=== PATIENT | female | born 1995 | race Hispanic/Latino ===

== ENCOUNTER 2025-01-25 14:24 | Emergency (ER) | payer BC ==
[~2025-01-25] VITALS: Ht 170.2 cm; Wt 113.4 kg
[2025-01-25 14:29] VITALS: BP 127/82; PULSE 83; RESP 18; TEMP 98.3
--- NOTE | 2025-01-25 14:52 | EKG ---
[facility] Test Date: 2025-01-25 Test Time: 14:46:26 Pat Name: MERLY JUAREZ Department: ED Room: Gender: F Board Catcher: [id number] : 1995 Requested By: JOSE ADAMS Order Number: [id number] Reading MD: Sandeep Dalton Measurements Intervals [place] Rate: 73 P: 41 WI: 163 QRS: 73 QRSD: 99 T: 54 QT: 354 QTc: 390 Interpretive Statements Sinus rhythm No previous ECG available for comparison Electronically Signed On 01-25-2025 20:29:48 CDT by Sandeep Dalton Please click the below link to view image of tracing.
[2025-01-25 15:07] LABS: IMMATURE GRANULOCYTE ABSOLUTE 0.03 K/uL (0-1); NUCLEATED RED BLOOD CELLS 0.0 % (0.0-0.19); PLATELET COUNT (AUTO) 366 K/uL (130-400); RED BLOOD CELL COUNT(AUTO) 4.73 MIL/uL (4.00-5.50); RED CELL DISTRIBUTION WIDTH 13.5 % (11.0-15.5); WHITE BLOOD COUNT (AUTO) 8.3 K/uL (4.8-10.8)
[2025-01-25 15:14] LABS: CREATININE 0.8 mg/dL (0.5-1.0); GLOMERULAR FILTR. RATE CALC 102.0 mL/min (>90); GLUCOSE,RANDOM 96.0 mg/dL (70-105); SODIUM SERUM 138.0 mmol/L (136-145); UREA NITROGEN, BLOOD 15.0 mg/dL (7-18)
[2025-01-25 15:35] LABS: HCG,QUANTITATIVE 0.0 mIU/mL (0-5)
--- NOTE | 2025-01-25 16:01 | ERN ---
ED Note History of Present Illness Stated Complaint: CP Chief Complaint: Chest Pain Time Seen by MD: 14:30 Time Seen by Midlevel: 14:33 Dictation: 29-year-old female with no past medical history coming in with complaints of chest pain and back pain worsening when she takes a deep breath. Patient does not admit to taking multiple energy drinks a day. Denies having any shortness a breath, fever, cough or congestion. Allergies: Coded Allergies: No Known Drug Allergies (Unverified Allergy, Unknown, 01/25/25) Past Medical History Past Medical History: CVA, Other Additional Past Medical Hx: BRAIN TUMOR Surgical History: Review of System Dictation Constitutional: Negative for fever,chills, and weight loss Eyes: Negative for injury, pain,redness, and discharge ENT: Negative for injury,pain or swelling Cardiovascular: Complaining of chest pain Respiratory: Negative for shortness of breath, cough, and wheezing, Abdomen/GI: Negative for abdominal pain, nausea, vomiting, diarrhea, and consti pation Back: Negative for injury and pain : Negative for injury, bleeding and discharge MS/Extremity: Negative for injury and deformity Skin: Negative for rash, and discoloration Neuro: Negative for headache, weakness, numbness, tingling, and seizure Psych: Negative for suicide ideation, homicidal ideation, and hallucinations Review of Systems: was completed Initial Vital Sign VS Vital Signs Date Time Temp Pulse Resp B/P (MAP) Pulse Ox O2 Delivery O2 Flow Rate FiO2 01/25/25 14:29 98.2 83 18 127/82 97 Physical Exam Dictation General: awake, alert, NAD Head/Face: Normocephalic, atraumatic Eyes: PERRL, EOMI, vision at baseline ENT: oral cavity clear, TMs clear, no signs of infection Neck: Trachea midline, supple, no nuchal rigidity Cardiovascular: RRR, normal S1/S2, No MRGs, no JVD, reproducible chest pain on palpation Respiratory: CTAB, no respiratory distress, No rales or wheezes Abdomen: Soft, non-tender, non-distended, normal bowel sounds, no guarding or rebound. Skin: Warm, dry, normal turgor, no rash MS/Extremity: Pulses equal, no cyanosis, neurovascular intact, FROM Neuro: COAx4, GCS 15, strength 5/5, CN 2-12 intact, normal cerebellar exam, normal gait, Psych: Normal behavior, mood, and affect normal Results (Laboratory/Radiology) Laboratory/Radiology Laboratory Tests Test 01/25/25 14:59 01/25/25 16:20 White Blood Count 8.3 K/uL (4.8-10.8) Red Blood Count 4.73 MIL/uL (4.00-5.50) Hemoglobin 13.0 g/dL (12.0-16.0) Hematocrit 38.3 % (36-48) Mean Corpuscular Volume 81.0 fL (79-99) Mean Corpuscular Hemoglobin 27.5 pg (27.0-33.0) Mean Corpuscular Hemoglobin Concent 33.9 g/dL (32.0-36.0) Red Cell Distribution Width 13.5 % (11.0-15.5) Platelet Count 366 K/uL (130-400) Mean Platelet Volume 10.4 fL (7.5-10.5) Immature Granulocyte % (Auto) 0.4 % (0-1) Neutrophils (%) (Auto) 65.5 % (40.0-77.0) Lymphocytes (%) (Auto) 25.9 % (21.0-51.0) Monocytes (%) (Auto) 5.6 % (3.0-13.0) Eosinophils (%) (Auto) 1.6 % (0.0-8.0) Basophils (%) (Auto) 1.0 % (0.0-5.0) Neutrophils # (Auto) 5.4 K/uL (1.8-7.7) Lymphocytes # (Auto) 2.1 K/uL (1.0-4.8) Monocytes # (Auto) 0.5 K/uL (0.1-1.0) Eosinophils # (Auto) 0.13 K/uL (0.00-0.70) Basophils # (Auto) 0.08 K/uL (0.00-0.20) Absolute Immature Granulocyte (auto 0.03 K/uL (0-1) Nucleated Red Blood Cells 0.0 % (0.0-0.19) Sodium Level 138 mmol/L (136-145) Potassium Level 4.2 mmol/L (3.5-5.1) Chloride Level 103 mmol/L (101-111) Carbon Dioxide Level 28 mmol/L (21-32) Blood Urea Nitrogen 15 mg/dL (7-18) Creatinine 0.8 mg/dL (0.5-1.0) Glomerular Filtration Rate Calc 102 mL/min (>90) Random Glucose 96 mg/dL (70-105) Total Calcium 9.1 mg/dL (8.5-10.1) Troponin I High Sensitivity 6 ng/L (4-50) Lipase 44 U/L (16-77) Human Chorionic Gonadotropin, Quant 0 mIU/mL (0-5) Urine Color YELLOW (YELLOW) Urine Appearance CLOUDY (CLEAR) H Urine pH 7.0 (5.0-8.0) Urine Specific [place] 1.021 (1.001-1.031) Urine Protein NEGATIVE mg/dL (NEGATIVE) Urine Glucose (UA) NEGATIVE mg/dL (NEGATIVE) Urine Ketones NEGATIVE mg/dL (NEGATIVE) Urine Occult Blood NEGATIVE (NEGATIVE) Urine Nitrate NEGATIVE (NEGATIVE) Urine Bilirubin NEGATIVE mg/dL (NEGATIVE) Urine Urobilinogen 0.2 mg/dL (0.2-1.0) Urine Leukocyte Esterase NEGATIVE [place]/uL Urine Opiates Screen NEGATIVE (NEGATIVE) Urine Barbiturates Screen NEGATIVE (NEGATIVE) Urine Phencyclidine Screen NEGATIVE (NEGATIVE) Urine Amphetamines Screen NEGATIVE (NEGATIVE) Urine Benzodiazepines Screen NEGATIVE (NEGATIVE) Urine Cocaine Screen NEGATIVE (NEGATIVE) Urine Marijuana (THC) Screen NEGATIVE (NEGATIVE) Labs Reviewed?: Yes EKG Comment: EKGs done at 2:46 p.m.. Sinus rhythm no STEMI interpreted by ER MD ED Course ED Course Orders Procedure Category Date Status Time Cbc With Differential LAB 01/25/25 Complete 14:44 Basic Metabolic Panel LAB 01/25/25 Complete 14:44 Lipase LAB 01/25/25 Complete 14:44 Troponin I High LAB 01/25/25 Complete Sensitivity 14:44 12 Lead Ekg Tracing- EKG 01/25/25 Complete Technical 14:44 Chest 1vw RAD 01/25/25 Taken 14:44 Urinalysis Profile LAB 01/25/25 In Process 14:44 Hcg,Quantitative LAB 01/25/25 Complete 14:44 Drug Screen Urine LAB 01/25/25 In Process 14:44 Ketorolac PHA 01/25/25 Verified Tromethamine 15mg/Ml 16:41 Vital Signs Date Time Temp Pulse Resp B/P (MAP) Pulse Ox O2 Delivery O2 Flow Rate FiO2 01/25/25 14:29 98.2 83 18 127/82 97 HEART Score Response (Comments) Value History: Low suspicion (0) 0 EKG: Normal 0 Age: < 45yrs (0) 0 Risk Factors: No known risk factors (0) 0 Initial Troponin: Normal limit (0) 0 Total 0 Medical Decision Making MDM MDM:29-year-old female with no past medical history coming in with complaints of chest pain and back pain worsening when she takes a deep breath. Patient does not admit to taking multiple energy drinks a day. Denies having any shortness a breath, fever, cough or congestion. Unremarkable. Troponin is negative. EKGs did not show any ST elevations or dysrhythmias. Chest x-ray within normal range interpreted by myself and ER MD. because I can reproduce chest pain on palpation it is more likely is related to costochondritis versus a cardiac etiology. Discussed this with the patient. Educated when to return to the hospital and follow up with PCP. Patient verbalized understanding, answered all questions. Differential diagnosis: ACS, costochondritis, pleurisy, Rationale: Tests considered and ordered secondary to shared decision making include: Previous outside records reviewed: Old ER visits. Risk of complication and/or morbidity or mortality of patient management: None Medications-Per medication reconciliation Need for hospitalization: Patient does not meet criteria for hospitalization. Need for emergency major/minor surgery: No There are no social concerns with this patient. Prescription drug management Prescriptions will include symptomatic care Patient's prior external medical records from other ER visits were reviewed by me as indicated. Prior testing and results from previous visits were reviewed. Prior tests were taken into account with medical decision making and resource utilization, independent historian/historians were used to obtain complete medical history. I independently interpreted the test that were performed, results were reviewed by me and considered findings on radiology if ordered. Medical management and examination interpretation discussions were had by me with other qualified healthcare professionals as indicated for the patient's care. DX & DISP Disposition: Discharge Departure Impression: Primary Impression: Costochondritis Condition: Stable Additional Instructions: Please take Tylenol or ibuprofen [id number] for pain control. Please discontinue the use of energy drinks. Follow up with your primary care provider. If symptoms worsen please return back to the emergency room. Referrals: SELF,REFERRAL (PCP) Time of Disposition: 16:43 I have reviewed the case, and I agree with, Diagnosis and Plan JOSE ADAMS NP Jan 25, 2025 16:00
[2025-01-25 16:32] LABS: APPEARANCE,URINE CLOUDY (CLEAR); GLUCOSE, URINE (UA) NEGATIVE (NEGATIVE); LEUKOCYTE ESTERASE ,URINE NEGATIVE Leu/uL (NEGATIVE); NITRATE,URINE NEGATIVE (NEGATIVE); OCCULT BLOOD,URINE NEGATIVE (NEGATIVE)
[2025-01-25 16:36] LABS: ADD UA MICROSCOPIC YES
[2025-01-25 16:39] LABS: SQUAMOUS EPITHELIAL CELL,UR FEW /HPF (0-2)
[2025-01-25 16:40] LABS: AMPHET/METH SCREEN,URINE NEGATIVE (NEGATIVE); BARBITURATE SCREEN, URINE NEGATIVE (NEGATIVE); CANNABINOID SCREEN,URINE NEGATIVE (NEGATIVE); COCAINE SCREEN,URINE NEGATIVE (NEGATIVE)
--- NOTE | 2025-01-25 18:05 | HMCIMG ---
EXAM: CR Chest, 1 View. CLINICAL HISTORY: cp COMPARISON: None provided. FINDINGS: LUNGS: There is no mass, infiltrate, or acute pulmonary abnormality. PLEURAL SPACES: No evidence of pleural effusion or pneumothorax. MEDIASTINUM: The cardiomediastinal silhouette is within normal limits. BONES: No aggressive appearing osseous lesion seen. IMPRESSION: No acute cardiopulmonary pathology is evident. /[place]
== END 2025-01-25 16:59 | disposition home or self-care (01) ==
LOC: EDH 14:24
DX: M94.0 Chondrocostal junction syndrome [Tietze] (principal); Z86.73 Personal history of transient ischemic attack (TIA), and cerebral infarction without residual deficits; Z98.890 Other specified postprocedural states
CPT/HCPCS: 36415; 71045; 80048; 80305; 81001; 83690; 84484; 84702; 85025; 93005; 99284